=== PATIENT | female | born 1960 | race Caucasian/White ===

== ENCOUNTER 2019-10-29 14:26 | Emergency (ER) | payer MEDICAID, SELFPAY ==
[2019-10-29 14:27] VITALS: BP 172/100; PULSE 102; RESP 18; TEMP 36.6; O2SAT 91; BMI 19.5
--- NOTE | 2019-10-29 14:45 | XR_ITS ---
PROCEDURE: XR CHEST PORTABLE CLINICAL HISTORY: sob COMPARISON: No exams were available for comparison FINDINGS: The cardiomediastinal silhouette and pulmonary vascularity are within normal limits. COPD. Mild prominence of the interstitial markings in the lung bases. No lobar consolidation or collapse. No acute bony abnormalities. IMPRESSION: COPD with prominent interstitial markings in the lung bases Dictated by: Corey Shin MD 10/29/2019 16:12 Corey Shin MD in [place] 10/29/2019 16:12
--- NOTE | 2019-10-29 14:45 | ECG_ITS ---
APPROVED REPORT Exam: Resting ECG HR:87 bpm ECG Measurements Heart Rate 87 AXES CA 106 P 79 QRSd 82 QRS 74 QT 340 T 88 QTc 409 <Conclusion> Sinus rhythm with short CA Possible Left atrial enlargement Nonspecific ST-T wave abnormalities Abnormal ECG Electronically signed by : Dion Ramos, 10/30/2019 08:48:59
--- NOTE | 2019-10-29 14:54 | [facility].EDGENADL ---
ED Disposition Clinical Impression: Acute exacerbation of chronic obstructive airways disease Disposition: Home, Self-Care Condition on Discharge: Good Instructions: DI for Chronic Bronchitis, DI for Shortness of Breath Referrals: Mery Meyers [Primary Care Provider] - - Critical Care Critical Care Time: No Attestation: On 10/29/19, the high probability of a clinically significant, sudden or life threatening deterioration of the following system(s) required my full and direct attention, intervention and personal management. The time I documented below is in addition to time spent performing reported procedures but includes the following listed in this critical care notation. Medical Decision Making - Marcus Inquiry Pt receiving controlled substance: No Vital Signs: 10/29/19 14:27 10/29/19 15:26 10/29/19 16:51 Temperature 97.8 F Temperature Source Oral Pulse Rate Pulse Rate [Left Radial] 102 H 85 87 Respiratory Rate 18 20 Blood Pressure Blood Pressure [Right Arm] 172/100 H 165/105 H 158/92 H Blood Pressure Mean [Right Arm] 124 125 114 Blood Pressure Source Blood Pressure Source [Right Arm] Automatic Cuff Automatic Cuff Automatic Cuff Blood Pressure Position Blood Pressure Position [Right Arm] Sitting Sitting Sitting 02 Sat by Pulse Oximetry 91 L 90 L 91 L Oxygen Delivery Method Room Air Room Air Room Air 10/29/19 17:08 Temperature 97.8 F Temperature Source Oral Pulse Rate 89 Pulse Rate [Left Radial] Respiratory Rate 20 Blood Pressure 138/86 Blood Pressure [Right Arm] Blood Pressure Mean [Right Arm] Blood Pressure Source Automatic Cuff Blood Pressure Source [Right Arm] Blood Pressure Position Sitting Blood Pressure Position [Right Arm] 02 Sat by Pulse Oximetry Oxygen Delivery Method Room Air - Lab Data Lab Results 10/29/19 15:10: Troponin I < 0.01 10/29/19 15:10: WBC 12.7 H, RBC 5.20, Hgb 16.1, Hct 49.1 H, MCV 94.4, MCH 31.0, MCHC 32.8, RDW 13.0, Plt Count 298, MPV 7.2 L, Neut % (Auto) 91.8 H, Lymph % (Auto) 4.9 L, [place] % (Auto) 3.1, Eos % (Auto) 0.1, Baso % (Auto) 0.1, Neut # (Auto) 11.7 H, Lymph # (Auto) 0.6 L, [place] # (Auto) 0.4, Eos # (Auto) 0.0, Baso # (Auto) 0.0, Total Counted 100, Neutrophils % (Manual) 94 H, Lymphocytes % (Manual) 4 L, Monocytes % (Manual) 2, Platelet Estimate Normal, RBC Morphology Normal 10/29/19 15:10: Sodium 139, Potassium 4.3, Chloride 101, Carbon Dioxide 28, Anion Gap 14.3, BUN 10, Creatinine 0.50 L, Estimated Creat Clear 110, Estimated GFR 127, Est GFR ( Amer) 153, Glucose 155 H, Calcium 10.0, Total Bilirubin 0.4, AST 23, ALT 18, Alkaline Phosphatase 72, Total Protein 7.6, Albumin 4.5, Globulin 3.1, Albumin/Globulin Ratio 1.5 10/29/19 15:10: Magnesium 2.2, NT-Pro-B Natriuret Pep 181 H 10/29/19 15:10: SARS-CoV-2 IgG Ab (Rapid) Negative, SARS-CoV-2 IgM Ab (Rapid) Negative 10/29/19 15:10: Lactate 1.2 Result diagrams: 10/29/19 15:10 10/29/19 15:10 Orders (Tests/Meds): ED MEDICATIONS Discontinued Medications Generic Name Dose Route Start Last Admin Trade Name Freq PRN Reason Stop Dose Admin Albuterol Sulfate 2 puffs 10/29/19 15:08 10/29/19 15:15 Proventil-Hfa 90mcg/Puff Inhaler 11/28/19 15:07 2 puffs Q4HP PRN Administration Shortness Of Breath Albuterol/Ipratropium 3 ml 10/29/19 14:47 10/29/19 15:07 Duoneb 3ml Neb 10/29/19 14:48 Not Given ONCE ONE Methylprednisolone Sodium Succinate 125 mg 10/29/19 14:47 10/29/19 15:11 Solu-Medrol 125mg/2ml Vial IV 10/29/19 14:48 125 mg ONCE ONE Administration Miscellaneous 1 unit 10/29/19 15:08 10/29/19 15:15 Aerochamber/Optihaler 10/29/19 15:09 1 unit ONCE ONE Administration ORDERS Category Date Time Status Blood Culture Stat Micro 10/29/19 14:54 Received ECG Request by /Nse Stat Y 10/29/19 14:45 Ordered Medical Decision Narrative: The patient is a 58 year old female with a history of CAD, HTN, every day smoker
[2019-10-29 15:19] LABS: Basophils % 0.1 % (0.1-2.0); Eosinophils % 0.1 % (0.1-12.0); Hematocrit 49.1 % (37.0-47.0); Hemoglobin 16.1 g/dL (12.2-16.2); Lymphocytes # 0.6 K/mm3 (0.7-4.5); Lymphocytes % 4.9 % (10-50); Mean Corpuscular HGB Conc 32.8 g/dL (31.8-35.4); Mean Corpuscular Volume 94.4 fl (81-99); Mean Platelet Volume 7.2 fl (7.4-10.4); Monocytes # 0.4 K/mm3 (0.1-1.0); Monocytes % 3.1 % (1.7-9.3); Neutrophils # 11.7 K/mm3 (1.8-7.8); Neutrophils % 91.8 % (37.0-80.0); Platelet Count 298 K/mm3 (142-424); White Blood Count 12.7 K/mm3 (4.8-10.8)
[2019-10-29 15:21] LABS: Chloride 101 mmol/L (98-107); MANUAL DIFFERENTIAL MANUAL DIFFERENTIAL (MANUAL DIFF); Sodium 139 mmol/L (136-145)
[2019-10-29 15:22] LABS: Potassium 4.3 mmoL/L (3.5-5.1)
[2019-10-29 15:24] LABS: Alanine Aminotransferase 18 U/L (12-78); Albumin Level 4.5 g/dl (3.5-5.0); Albumin/Globulin Ratio 1.5 (1.1-1.8); Alkaline Phosphatase 72 U/L (38-126); Anion Gap 14.3 mEq/L (5-15); Aspartate Amino Transferase 23 U/L (14-36); Bilirubin,Total 0.4 mg/dl (0.2-1.3); Blood Urea Nitrogen 10 mg/dl (7-17); Carbon Dioxide 28 mmol/L (22.0-30.0); Creatinine Clearance Estimated 110 mL/min (50-200); Estimated Glomerular Filt Rate 127 ml/min (>60); GFR (African American) 153 ML/MIN (>60); Globulin 3.1 g/dL (1.3-3.2); Glucose 155 mg/dl (74-100); Lactic Acid 1.2 mmol/L (0.7-2.1); Total Protein,Serum 7.6 g/dl (6.3-8.2)
[2019-10-29 15:26] VITALS: BP 165/105; PULSE 85; O2SAT 90
[2019-10-29 15:34] LABS: Lymphocytes % 4 % (10-50); Monocytes % 2 % (2-9); Neutrophils % 94 % (42-76); Platelet Estimate Normal; RBC Morphology Normal; Total Cells Counted 100
[2019-10-29 15:37] LABS: Troponin I < 0.01 ng/ml (0.00-0.034)
[2019-10-29 15:45] LABS: Magnesium 2.2 mg/dl (1.6-2.3)
[2019-10-29 15:48] LABS: Coronavirus 19 IgG Antibody Negative (Negative); Coronavirus 19 IgM Antibody Negative (Negative)
[2019-10-29 15:55] LABS: NT Pro Brain Natriuretic Pep. 181 pg/mL (0-125)
[2019-10-29 16:51] VITALS: BP 158/92; PULSE 87; RESP 20; O2SAT 91
[2019-10-29 17:08] VITALS: BP 138/86; PULSE 89; RESP 20; TEMP 36.6; O2SAT 91
== END 2019-10-29 17:10 | disposition home or self-care (01) ==
PROVIDERS: Emergency Provider Emergency Medicine; PCP Physician Assistant
DX: J44.1 Chronic obstructive pulmonary disease with (acute) exacerbation (principal); I25.10 Atherosclerotic heart disease of native coronary artery without angina pectoris; I10 Essential (primary) hypertension; E03.9 Hypothyroidism, unspecified; F17.210 Nicotine dependence, cigarettes, uncomplicated; Z20.828 Contact with and (suspected) exposure to other viral communicable diseases; Z79.899 Other long term (current) drug therapy
CPT/HCPCS: 71045; 80053; 83605; 83735; 83880; 84484; 85007; 85025; 86328; 87040; 96374; 99284